=== PATIENT | female | born 1970 | race African-American/Black ===

== ENCOUNTER 2023-04-05 00:40 | Emergency (ER) | payer OTHER ==
[~2023-04-05] VITALS: Ht 157.5 cm; Wt 65.3 kg
[2023-04-05] MEDS ORDERED: ATORVASTATIN CA10 MG PO (00:50)
[2023-04-05] MEDS ORDERED: VALTREX1000 MG PO (00:50)
[2023-04-05] MEDS ORDERED: DICY20TA PO (00:51)
[2023-04-05] MEDS ORDERED: OSTERA TABLET1 EACH PO (00:52)
[2023-04-06] MEDS ORDERED: ZOFRAN8 MG PO (12:04)
[2023-04-06] MEDS ORDERED: PEPCID AC20 MG PO (12:04)
== END 2023-04-05 05:45 | disposition home or self-care (01) ==
LOC: ER 00:40
DX: K29.70 Gastritis, unspecified, without bleeding (principal); R11.10 Vomiting, unspecified

== ENCOUNTER 2023-04-06 06:39 | Emergency (ER) | payer OTHER ==
[~2023-04-06] VITALS: Ht 165.1 cm; Wt 72.6 kg
[~2023-04-06 06:39] MED LIST: ATORVASTATIN CA10 MG PO; DICY20TA PO; OSTERA TABLET1 EACH PO; VALTREX1000 MG PO
[2023-04-06] MEDS ORDERED: PEPCID AC20 MG PO (12:04)
[2023-04-06] MEDS ORDERED: ZOFRAN8 MG PO (12:04)
== END 2023-04-06 12:35 | disposition home or self-care (01) ==
LOC: ER 06:39
DX: K29.70 Gastritis, unspecified, without bleeding (principal); R10.11 Right upper quadrant pain; R11.10 Vomiting, unspecified; I10 Essential (primary) hypertension; Z20.822 Contact with and (suspected) exposure to COVID-19